=== PATIENT | female | born 1985 | race Caucasian/White ===

== ENCOUNTER 2018-09-10 13:18 | Inpatient (IN) | payer OTHER ==
[2018-09-10 13:49] LABS: ADD MAN DIFF? NO
[2018-09-10 13:52] LABS: WHITE BLOOD COUNT 8.3 10^3/ul (4.8-10.8)
[2018-09-10 13:52] LABS: BASOPHILS % 0.4 % (0.0-2.0); EOSINOPHILS # 0.1 10^3/ul (0.0-0.5); EOSINOPHILS % 1.2 % (0.0-7.0); HEMATOCRIT 27.1 % (37.0-47.0); HEMOGLOBIN 8.3 g/dl (12.0-16.0); LYMPHOCYTES # 1.2 10^3/ul (0.8-2.9); LYMPHOCYTES % 14.7 % (15.0-51.0); MEAN CORPUSCULAR HEMOGLOBIN 21.7 pg (29.0-33.0); MEAN CORPUSCULAR HGB CONC 30.6 g/dl (32.0-37.0); MEAN CORPUSCULAR VOLUME 70.9 fl (82.0-101.0); MONOCYTE # 0.4 10^3/ul (0.3-0.9); NEUTROPHIL # 6.5 10^3/ul (1.6-7.5); NEUTROPHILS % 77.9 % (39.0-77.0); PLATELET COUNT 254 10^3/UL (140-415); RED BLOOD COUNT 3.82 10^6/ul (4.20-5.40); RED CELL DISTRIBUTION WIDTH 16.7 % (11.5-14.5)
[2018-09-10 14:00] LABS: ADD UMIC YES; UR ASCORBIC ACID NEGATIVE (NEGATIVE); UR BACTERIA FEW /HPF (NONE SEEN); UR BILIRUBIN (Dip) NEGATIVE (NEGATIVE); UR BLOOD (Dip) 1+ mg/dL (NEGATIVE); UR BUDDING YEAST FEW /HPF (NONE SEEN); UR CLARITY CLOUDY (CLEAR); UR COLOR YELLOW (YELLOW); UR GLUCOSE (Dip) NEGATIVE (NEGATIVE); UR KETONES (Dip) NEGATIVE (NEGATIVE); UR LEUKOCYTE ESTERASE (Dip) 3+ Leu/ul (NEGATIVE); UR MUCUS FEW /HPF (NONE SEEN); UR NITRITE (Dip) NEGATIVE (NEGATIVE); UR RBC 16 /HPF (0-5); UR SQUAMOUS EPITHELIAL CELL MODERATE /HPF (FEW); UR TOTAL PROTEIN (Dip) NEGATIVE (NEGATIVE); UR UROBILINOGEN (Dip) NEGATIVE (NEGATIVE); UR WBC 15 /HPF (0-5)
[2018-09-10 14:10] LABS: INR 1.02; PROTIME 13.5 Sec (11.9-14.9); PT RATIO 1.1
[2018-09-10 14:11] LABS: ALANINE AMINOTRANSFERASE 14 IU/L (13-69); ALBUMIN 2.8 g/dl (3.3-4.9); ALBUMIN/GLOBULIN RATIO 0.87; ALKALINE PHOSPHATASE 169 IU/L (42-121); ANION GAP 7 (5-13); ASPARTATE AMINO TRANSFERASE 19 IU/L (15-46); BILIRUBIN,INDIRECT 0.1 mg/dl (0-1.1); BILIRUBIN,TOTAL 0.1 mg/dl (0.2-1.3); BLOOD UREA NITROGEN 5 mg/dl (7-20); CALCIUM 8.1 mg/dl (8.4-10.2); CARBON DIOXIDE 22 mmol/L (21-31); CHLORIDE 107 mmol/L (97-110); CREATININE 0.42 mg/dl (0.44-1.00); Estimated GFR > 60 mL/min (>60); GLUCOSE 83 mg/dl (70-220); PARTIAL THROMBOPLASTIN TIME 33.1 Sec (23.0-35.0); POTASSIUM 3.8 mmol/L (3.5-5.1); SODIUM 136 mmol/L (135-144); URIC ACID 3.8 mg/dl (3.1-7.9)
[2018-09-10] MEDS: LACTATED RINGER'S 1,000 ML IV (17:49)
[2018-09-10] MEDS ORDERED: ACETAMINOPHEN 325 MG TAB PO (21:00)
[2018-09-10] MEDS: BETAMET NA PHOS/AC(6 MG/ML) 2 ML INJ SYG IM (21:50)
[2018-09-11] MEDS: LACTATED RINGER'S 1,000 ML IV ×2 (00:40→07:59)
[2018-09-11] MEDS ORDERED: EPHEDrine SULFATE 50 MG/5 ML SYG (07:00)
[2018-09-11] MEDS: LACTATED RINGER'S 500 ML IV (08:55)
[2018-09-11] MEDS: FERROUS SULFATE (EC) 325 MG TAB PO (09:00)
[2018-09-11] MEDS: PRENATAL VITAMIN PO (09:00)
[2018-09-11] MEDS ORDERED: morphine SULFATE/PF (10 MG/10 ML) INJ (09:24)
[2018-09-11] MEDS ORDERED: METOCLOPRAMIDE 10 MG INJ (09:24)
[2018-09-11] MEDS ORDERED: KETOROLAC 30 MG INJ (09:24)
[2018-09-11] MEDS ORDERED: ONDANSETRON 4 MG INJ (09:24)
[2018-09-11] MEDS ORDERED: OXYTOCIN 30 UNITS/LR 500 ML IV ×3 (09:30→14:00)
[2018-09-11] MEDS ORDERED: CARBOPROST 250 MCG INJ IM ×2 (09:30→14:00)
[2018-09-11] MEDS ORDERED: MISOPROSTOL 200 MCG TAB PR ×2 (09:30→14:00)
[2018-09-11] MEDS ORDERED: BUPIVACAINE 0.75%/DEXT (SPINAL) 2 ML INJ (09:41)
[2018-09-11] MEDS: CEFAZOLIN 3 GM in DEXTROSE 5% 100 ML IV (10:56)
[2018-09-11] MEDS: OXYTOCIN 30 UNITS/LR 500 ML IV ×4 (10:56→22:43)
[2018-09-11] MEDS ORDERED: ONDANSETRON 4 MG INJ IV ×2 (11:00)
[2018-09-11] MEDS ORDERED: NALOXONE (0.4 MG/ML) INJ IV (11:00)
[2018-09-11] MEDS ORDERED: morphine (1 MG/ML) 10ML SYRINGE IV ×3 (11:00)
[2018-09-11] MEDS ORDERED: KETOROLAC 30 MG INJ IV (11:00)
[2018-09-11] MEDS ORDERED: DIPHENHYDRAMINE 50 MG INJ IV ×2 (11:00)
[2018-09-11] MEDS ORDERED: morphine 2 MG INJ IV ×3 (11:00)
[2018-09-11] MEDS ORDERED: HYDROCODONE/APAP (5/325) TAB PO (14:00)
[2018-09-11] MEDS ORDERED: METHYLERGONOVINE 0.2 MG INJ IM (14:00)
[2018-09-11] MEDS ORDERED: OXYCODONE/ACETAMINOPHEN (5/325) TAB PO ×2 (14:00)
[2018-09-11 14:21] LABS: HEPATITIS B SURFACE ANTIGEN NEGATIVE (NEGATIVE)
[2018-09-11] MEDS: LANOLIN HPA 1 PKT TOP (14:41)
[2018-09-11] MEDS: CEFAZOLIN 1 GM/50 ML (PMX) 50 ML IVPB (17:38)
[2018-09-11] MEDS: KETOROLAC 30 MG INJ IV (17:59)
[2018-09-11 22:53] LABS: RAPID PLASMA REAGIN NONREACTIVE (NR)
[2018-09-12] MEDS: LACTATED RINGER'S 1,000 ML IV (03:08)
[2018-09-12] MEDS: KETOROLAC 30 MG INJ IV (04:54)
[2018-09-12 07:52] LABS: ADD MAN DIFF? NO
[2018-09-12 07:56] LABS: WHITE BLOOD COUNT 10.4 10^3/ul (4.8-10.8)
[2018-09-12 07:56] LABS: BASOPHILS % 0.3 % (0.0-2.0); EOSINOPHILS % 0.4 % (0.0-7.0); HEMATOCRIT 24.5 % (37.0-47.0); HEMOGLOBIN 7.4 g/dl (12.0-16.0); LYMPHOCYTES # 1.6 10^3/ul (0.8-2.9); LYMPHOCYTES % 15.1 % (15.0-51.0); MEAN CORPUSCULAR HEMOGLOBIN 21.8 pg (29.0-33.0); MEAN CORPUSCULAR HGB CONC 30.2 g/dl (32.0-37.0); MEAN CORPUSCULAR VOLUME 72.3 fl (82.0-101.0); MEAN PLATELET VOLUME 11.4 fl (7.4-10.4); MONOCYTE # 0.5 10^3/ul (0.3-0.9); MONOCYTES % 4.5 % (0.0-11.0); NEUTROPHIL # 8.2 10^3/ul (1.6-7.5); NEUTROPHILS % 78.8 % (39.0-77.0); PLATELET COUNT 240 10^3/UL (140-415); RED BLOOD COUNT 3.39 10^6/ul (4.20-5.40); RED CELL DISTRIBUTION WIDTH 17.1 % (11.5-14.5)
[2018-09-12] MEDS: IBUPROFEN 600 MG TAB PO ×2 (12:32→17:16)
[2018-09-12] MEDS: SENNA/DOCUSATE NA (8.6MG/50MG) TAB PO ×2 (12:32→20:56)
[2018-09-12] MEDS: INFLUENZA VIRUS VACCINE 0.5 ML (DISPENSING) IM* (12:33)
[2018-09-12] MEDS: HYDROCODONE/APAP (5/325) TAB PO (16:40)
[2018-09-13] MEDS: IBUPROFEN 600 MG TAB PO ×3 (00:29→11:49)
[2018-09-13] MEDS: SENNA/DOCUSATE NA (8.6MG/50MG) TAB PO (10:20)
[2018-09-13] MEDS: HYDROCODONE/APAP (5/325) TAB PO (11:49)
[2018-09-13] MEDS: DIPHTH/TET/ACEL PERTUSS (ADULT) 0.5 ML VIAL IM* (11:50)
[2018-09-14] MEDS ORDERED: DIPHTH/TET/ACEL PERTUSS (ADULT) 0.5 ML VIAL IM* (09:00)
== END 2018-09-13 17:50 | disposition home or self-care (01) | DRG 788 ==
LOC: OBT 13:18 → L-D 13:19 → OBT 20:35 → L-D 20:35 → PP1 09-11 14:14
PROC: 10D00Z1 Extraction of Products of Conception, Low, Open Approach (ICD-10-PCS; principal; 2018-09-11 10:00)
DX: O60.14X0 Preterm labor third trimester with preterm delivery third trimester, not applicable or unspecified (principal); O99.214 Obesity complicating childbirth; E66.9 Obesity, unspecified; O13.4 Gestational [pregnancy-induced] hypertension without significant proteinuria, complicating childbirth; O14.94 Unspecified pre-eclampsia, complicating childbirth; O76 Abnormality in fetal heart rate and rhythm complicating labor and delivery; Z3A.36 36 weeks gestation of pregnancy; Z37.0 Single live birth
CPT/HCPCS: 36415; 76815; 76818; 80053; 81001; 84560; 85025; 85384; 85610; 85730; 86592; 86850; 86900; 86901; 87086; 87340; 90686; 90715; 96361; 99464